=== PATIENT | male | born 1995 | race Caucasian/White ===

== ENCOUNTER 2025-05-12 09:26 | Emergency (ER) | payer SELFPAY ==
[2025-05-12 09:30] VITALS: BP 131/67; PULSE 86; RESP 18; TEMP 37.4; O2SAT 97; BMI 23.7
--- NOTE | 2025-05-12 09:37 | [facility].EDGENADL ---
Discharge Plan Disposition Patient Disposition: Home, Self-Care Prescriptions Prescriptions: New ondansetron 4 mg tablet,disintegrating 4 mg PO Q6H PRN (Reason: nausea and vomiting) Qty: 12 0RF Referrals Follow up/Referrals: Provider,Mulugeta Hire [Referring, Medical] - See instructions Activity Restrictions/Add. Instructions Additional Instructions/Restrictions: You are found to be flu positive. Continue to hydrate well by drinking plenty of fluids, including water, sugar-free Gatorade and Pedialyte over the next several days. You can take Tylenol and ibuprofen to help with your symptoms. I have called in [facility] to help with nausea and vomiting to [facility]. Take this as prescribed. If you develop any new or worsening symptoms, or if you become concerned for your health for any reason, return to the emergency department for evaluation. Clinical Impressions Clinical Impression: Influenza A Instructions Patient Instructions: DI for Diarrhea and Traveler's Diarrhea in Adults, DI for Diarrhea and Traveler's Diarrhea in Children, DI for Nausea in Adults, DI for Nausea in Children Print Language Print Language: Nepali Discharge ED Provider: Greg Wilde General Adult HPI General Chief complaint: Nausea/Vomiting/Diarrhea Stated complaint: vomiting, body aches, sweats Time Seen by Provider: 05/12/25 09:31 Mode of Arrival: Ambulatory Source of Information: Patient Description of Symptoms (Recalled from ER Triage Doc. by RN): PATIENT PRESENTS TO ED FOR N/V, HEADACHE, BODY ACHES, AND CHILLS. REPORTS S/S STARTED LAST NIGHT AT 1800, UNABLE TO KEEP ANYTHING DOWN SINCE. History of Present Illness HPI narrative: Luiz Camarillo is a 29-year-old male with no significant past medical history who presents to the emergency department for complaints of nausea and vomiting. Patient states that starting at approximately 6:00 last night, he has had multiple episodes of nonbilious nonbloody vomiting. He states that he stopped vomiting approximately 8:00 this morning. He still feels nauseated. He states that he has some generalized abdominal pain. He denies any shortness of breath or chest pain. He states that his girlfriend had a similar type illness about a week ago. He reports subjective fevers. He thinks he might be dehydrated from all the vomiting. Related Data Previous Rx's ?Medication ?Instructions ?Recorded ondansetron 4 mg disintegrating 4 mg PO Q6H PRN nausea and 05/12/25 tablet vomiting #12 tabs Allergies Allergy/AdvReac Type Severity Reaction Status Date / Time No Known Allergies Allergy Verified 05/12/25 09:38 [facility] Disclaimer: The information contained in this section may have been updated after the patient was seen, as this information can be updated by other users. Social History Smoking Status: Never smoker alcohol intake: never current occupational status: employed Travel in the last 8 weeks?: None ROS Obtained: Yes Systems reviewed as appropriate & no additional complaints except as documented Physical Exam General General appearance: alert and in no apparent distress Head Head exam: atraumatic Eye Eye exam: Present normal appearance ENT ENT exam: Present normal external ear exam Neck Neck exam: Present full ROM Chest Chest inspection: Present symmetric chest wall rise Respiratory Respiratory exam: Present normal lung sounds bilaterally; Absent respiratory distress Cardiovascular Cardiovascular exam: Present regular rate and normal rhythm Abdominal Exam Abdominal exam: Present soft; Absent tenderness or guarding exam: Present deferred Extremities Exam Extremities exam: Present normal inspection Back Exam Back exam: Present normal inspection Neurological Exam Neurological exam: Present alert and oriented X3 Psychiatric Psychiatric exam: Present normal affect Skin Skin exam: Present warm and dry Medical Decision Making Medical Records Screening: Per USPSTF and CDC recommendations, given the prevalence of disease in our region, it is our hospital?s policy to screen for HIV and viral Hepatitis for all patients aged 18 and over and those with ongoing risk factors. Kimo Inquiry Pt receiving controlled substance: No Vital Signs: 05/12/25 09:30 05/12/25 09:30 05/12/25 10:00 Temperature 99.3 F 99.3 F Temperature Source Oral Pulse Rate 86 66 Pulse Rate [Right] 86 Respiratory Rate 18 18 Blood Pressure 131/67 118/64 Blood Pressure [Right Arm] 131/67 Blood Pressure Mean [Right Arm] 88 02 Sat by Pulse Oximetry 97 97 98 Oxygen Delivery Method Room Air Lab Data Lab Results 05/12/25 09:40: WBC 5.6, RBC 4.75, Hgb 14.3, Hct 40.9 L, MCV 86.1, MCH 30.1, MCHC 35.0, RDW 12.5, Plt Count 193, MPV 10.2, Neut % (Auto) 80.3 H, Lymph % (Auto) 8.2 L, [place] % (Auto) 10.7 H, Eos % (Auto) 0.0 L, Baso % (Auto) 0.4, Neut # (Auto) 4.5, Lymph # (Auto) 0.5 L, [place] # (Auto) 0.6, Eos # (Auto) 0.0, Baso # (Auto) 0.0, Sodium 137, Potassium 3.9, Chloride 105, Carbon Dioxide 21 L, Anion Gap 14.9, BUN 21 H, Creatinine 1.10, Estimated Creat Clear 114, Estimated GFR 79, Est GFR ( Amer) 96, Glucose 132 H, Calcium 9.0, Total Bilirubin 0.4, AST 33, ALT 21, Alkaline Phosphatase 53, Total Protein 7.2, Albumin 4.7, Globulin 2.5, Albumin/Globulin Ratio 1.9 H, Lipase 30, SARS-CoV-2 (PCR) Not detected, Influenza A Untype (PCR) Detected A, Influenza Type B (PCR) Not detected 05/12/25 09:40 05/12/25 09:40 Orders (Tests/Meds): ED MEDICATIONS Discontinued Medications Generic Name Dose Route Start Last Admin Trade Name Freq PRN Reason Stop Dose Admin Lactated Ringer's 1,000 mls @ 999 mls/hr 05/12/25 09:35 05/12/25 09:51 Lactated Ringer's 1000 Ml Bag IV 05/12/25 10:35 999 mls/hr .Q1H1M ONE Administration Ondansetron HCl 4 mg 05/12/25 09:35 05/12/25 09:52 Ondansetron 4mg/2ml Vial IV 05/12/25 09:36 4 mg ONCE ONE Administration ORDERS Category Date Time Status CBC w/Auto Diff [Complete Blood Count Auto Diff] Stat Lab 05/12/25 09:40 Results CMP [Comprehensive Metabolic Panel] Stat Lab 05/12/25 09:40 Completed Lipase Stat Lab 05/12/25 09:40 Completed Rapid PCR Covid and Flu A/B Stat Lab 05/12/25 09:40 Completed Medical Decision Narrative: Luiz Camarillo is a 29-year-old male with no significant past medical history who presents to the emergency department for complaints of nausea and vomiting. Patient states that starting at approximately 6:00 last night, he has had multiple episodes of nonbilious nonbloody vomiting. He states that he stopped vomiting approximately 8:00 this morning. He still feels nauseated. He states that he has some generalized abdominal pain. He denies any shortness of breath or chest pain. He states that his girlfriend had a similar type illness about a week ago. He reports subjective fevers. He thinks he might be dehydrated from all the vomiting. On arrival, patient is afebrile, hemodynamically stable, maintaining appropriate oxygen saturation on room air. Physical exam, stated above, revealed overall nontoxic-appearing male in no distress. Moist mucous membranes present. Abdomen soft, nontender nondistended. No wheezing, rales or rhonchi. Differential diagnosis includes, but is not limited to: Viral illness such as influenza, viral gastritis, acute pancreatitis, GERD, MADYSON, electrolyte derangement, dehydration, among others. The most morbid conditions were considered and workup was based on these. Will obtain hematologic labs, rapid COVID and flu testing and give 1 L lactated ringer as well as 4 mg of IV Zofran. Lab studies are unremarkable and nonactionable. No evidence of MADYSON. No leukocytosis. Patient is influenza A positive. On reassessment, patient states that his nausea has improved. He does still have a mild headache and bodyaches. Will give 15 mg of IV Toradol. I do feel that he symptomatology is most consistent with influenza A and he is appropriate for discharge at this time. Recommended hydration at home. Will send prescription for Zofran at home. All questions were answered. He demonstrated understanding and was in agreement this plan. He was then discharged from the emergency department in stable condition. Critical Care Critical Care Time Critical Care Time: No
[2025-05-12 09:51] LABS: Coronavirus 19, PCR Not Detected (NotDetected); Influenza B, PCR Not Detected (NotDetected)
[2025-05-12] MEDS: LACTATED RINGERS 1000ML 1,000 ML 999 ML IV (09:51)
[2025-05-12] MEDS: ONDANSETRON 4MG/2ML VIAL 4 MG IV (09:52)
[2025-05-12 09:57] LABS: Hematocrit 40.9 % (42.0-52.0); Hemoglobin 14.3 g/dL (14.1-18.0); Immature Granulocytes % 0.4 %; Mean Corpuscular HGB Conc 35.0 g/dL (31.8-35.4); Mean Corpuscular Hemoglobin 30.1 pg (27.0-31.2); Mean Corpuscular Volume 86.1 fl (80-94); Nucleated Red Blood Cells % 0 %; Platelet Count 193 K/mm3 (142-424); Red Blood Count 4.75 M/mm3 (4.60-6.20); Red Cell Distribution Width-SD 39.2 fL; White Blood Count 5.6 K/mm3 (4.8-10.8)
[2025-05-12 09:59] LABS: Chloride 105 mmol/L (98-107)
[2025-05-12 10:00] VITALS: BP 118/64; PULSE 66; O2SAT 98
[2025-05-12 10:00] LABS: Albumin Level 4.7 g/dl (3.5-5.0); Potassium 3.9 mmoL/L (3.5-5.1); Sodium 137 mmol/L (136-145)
[2025-05-12 10:02] LABS: Anion Gap 14.9 mEq/L (5-15); Blood Urea Nitrogen 21 mg/dl (9-20); Carbon Dioxide 21 mmol/L (22.0-30.0); Creatinine Clearance Estimated 114 mL/min (50-200); Creatinine,Serum 1.10 mg/dl (0.66-1.25); Estimated Glomerular Filt Rate 79 ml/min (>60); GFR (African American) 96 ML/MIN (>60)
[2025-05-12 10:03] LABS: Alanine Aminotransferase 21 U/L (12-78); Albumin/Globulin Ratio 1.9 (1.1-1.8); Alkaline Phosphatase 53 U/L (38-126); Aspartate Amino Transferase 33 U/L (17-59); Bilirubin,Total 0.4 mg/dl (0.2-1.3); Calcium 9.0 mg/dl (8.4-10.2); Globulin 2.5 g/dL (1.3-3.2); Glucose 132 mg/dl (74-100); Lipase 30 U/L (23-300); Total Protein,Serum 7.2 g/dl (6.3-8.2)
[2025-05-12 10:17] LABS: Influenza A, PCR Detected (NotDetected)
[2025-05-12] MEDS: KETOROLAC 15MG/ML VIAL 15 MG IV (10:48)
[2025-05-12 10:51] VITALS: BP 136/68; PULSE 56; RESP 18; TEMP 37.4; O2SAT 98
[2025-05-12 12:29] LABS: RBC Morphology Normal; Total Cells Counted 100
== END 2025-05-12 11:00 | disposition home or self-care (01) ==
PROVIDERS: Emergency Provider Student in an Organized Health Care Education/Training Program
DX: J10.1 Influenza due to other identified influenza virus with other respiratory manifestations (principal); R11.2 Nausea with vomiting, unspecified; R51.9 Headache, unspecified
CPT/HCPCS: 80053; 83690; 85007; 85025; 87636; 96361; 96374; 96375; 99284; 99285; J1885; J2405; J7120